=== PATIENT | female | born 1975 | race Caucasian/White ===

== ENCOUNTER 2016-09-30 22:18 | Emergency (ER) | payer OTHER ==
[2016-09-30 22:27] VITALS: BP 128/65; PULSE 95; TEMP 98.8; BMI 42.9
--- NOTE | 2016-09-30 23:36 | PDOC ---
History of Present Illness - General Chief Complaint: Injury Stated Complaint: LACERATION TO LEFT THUMB Time Seen by Provider: 09/30/16 22:22 - History of Present Illness Initial Comments: This 41-year-old woman presents with laceration to her left thumb: Patient was cooking dinner just prior to presentation when she cut the tip of the thumb with cooking duane. Laceration bled considerably at home but stopped with pressure while awaiting evaluation. No other injury sustained. Patient denies weakness/numbness in the thumb. No history of poor wound healing/immunocompromise/resistant organism colonization or infection Patient is unsure of last tetanus immunization; she believes it was in 2013 Past History - Past Medical History Allergies/Adverse Reactions: Allergies Allergy/AdvReac Type Severity Reaction Status Date / Time Penicillins Allergy Verified 09/30/16 22:20 Home Medications: Ambulatory Orders Escitalopram Oxalate [Lexapro -] 15 mg PO DAILY 09/30/16 - Immunization History Td Vaccination: Yes Immunization Up to Date: Yes - Psycho/Social/Smoking Cessation Hx Anxiety: No Suicidal Ideation: No Smoking History: Never smoked Have you smoked in the past 12 months: No Information on smoking cessation initiated: No Hx Alcohol Use: No Drug/Substance Use Hx: No Substance Use Type: None Review of Systems - Review of Systems Able to Perform ROS?: Yes *Physical Exam - Vital Signs Last Vital Signs Temp Pulse Resp BP Pulse Ox 98.8 F 95 H 16 128/65 98 09/30/16 22:22 09/30/16 22:22 09/30/16 22:22 09/30/16 22:22 09/30/16 22:22 - Physical Exam Comments: GENERAL: HEAD: Normal with no signs of trauma. EYES: PERRLA, EOMI, sclera anicteric, conjunctiva clear. ENT: Ears normal, nares patent, oropharynx clear without exudates. Dry mucous membranes. NECK: Normal range of motion, supple without lymphadenopathy, JVD, or masses. LUNGS: Breath sounds equal, clear to auscultation bilaterally. No wheezes, and no crackles. HEART:Regular rate and rhythm, normal S1 and S2 without murmur, rub or gallop. ABDOMEN:.normal bowel sounds No guarding,tenderness or rebound.No masses No distention. EXTREMITIES: Normal range of motion, no edema. No clubbing or cyanosis. No erythema, or tenderness. NEUROLOGICAL: Cranial nerves II through XII grossly intact. Normal speech. No focal neurologic deficits MUSCULOSKELETAL: Back non-tender to palpation, no CVA tenderness SKIN: Left thumb0.5 cm nonbleeding flap-type laceration at the tip; flap is pink and has excellent capillary refill No injury to nail or nailbed Remainder of the thumb is normal without motor or sensory deficits Skin exam is otherwise normal Procedures - Laceration/Wound Repair Left 1st digit Wound Length: to 2.5 cm Wound Explored: clean Wound's Depth, Shape: flap Irrigated w/ Saline: Yes Betadine Prep: No (Hibiclens/ethanol) Anesthesia: 1% Lidocaine Amount of Anesthetic (ccs): 1 Wound Repaired With: Sutures Suture Size/Type: 6:0 Number of Sutures: 2 Layer Closure: No Sterile Dressing Applied: Yes Progress: 0.5 centimeter flap type curvilinear laceration present at the tip of the left thumb. This was prepped using Hibiclens/ethanol solution. 1 mL of 1% lidocaine infiltrated into the wound for local anesthesia. Wound irrigated using 40 mL of sterile normal saline. Wound closed with 2 interrupted sutures of 6-0 nylon. Bacitracin and dry sterile dressing applied. Patient tolerated the procedure well Progress Note - Progress Note Progress Note: This 41-year-old woman presents with a small (0.5 cm) flap-type laceration at the tip of her left thumb. On examination, laceration is no longer bleeding and flap is adherent. 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 Therefore, flap was secured by suturing as noted above. Patient states that she will follow-up with her general medical doctor regarding her tetanus prophylaxis and receive booster in the doctor's office as needed. Patient was discharged with instructions to keep the wound is dry as possible for 48 hours, then protective dressing during day(open at night). Sutures should be removed after 1 week *DC/Admit/Observation/Transfer Diagnosis at time of Disposition: Laceration of thumb, left Qualifiers: Encounter type: initial encounter Qualified Code(s): S61.012A - Laceration without foreign body of left thumb without damage to nail, initial encounter - Discharge Dispostion Disposition: HOME Condition at time of disposition: Stable - Patient Instructions Printed Discharge Instructions: How to Care for a Laceration After Repair Additional Instructions: keep wound covered and dry as possible for 48 hours elevate as much as possible tonight after 2 days, cover during day/open at night return if area is red/swollen/painful have sutures removed in 1 week
== END 2016-09-30 23:43 | disposition home or self-care (01) ==
LOC: FER 22:18
PROC: 0HQGXZZ Repair Left Hand Skin, External Approach (ICD-10-PCS; principal; 2016-09-30)
DX: S61.012A Laceration without foreign body of left thumb without damage to nail, initial encounter (principal); W26.0XXA Contact with knife, initial encounter; Y93.G3 Activity, cooking and baking; Y92.000 Kitchen of unspecified non-institutional (private) residence as the place of occurrence of the external cause
CPT/HCPCS: 99281-25

== ENCOUNTER 2024-01-31 10:03 | Emergency (ER) | payer BC, OTHER ==
[2024-01-31 10:20] VITALS: BP 143/98; PULSE 91; RESP 18; TEMP 99.1; BMI 38.9
== END 2024-01-31 12:01 | disposition home or self-care (01) ==
LOC: FER 10:03
DX: S60.221A Contusion of right hand, initial encounter (principal); W23.0XXA Caught, crushed, jammed, or pinched between moving objects, initial encounter
CPT/HCPCS: 73130-TC-RT-FY; 99283-25